=== PATIENT | male | born 1950 | race Caucasian/White ===

== ENCOUNTER 2017-04-20 11:24 | Day surgery (SDC) | payer OTHER ==
[2017-04-19 12:03] VITALS: BMI 25.0
--- NOTE | 2017-04-20 16:07 | MRI ---
LUMBAR SPINE MRI WITHOUT IV CONTRAST: Date: 04/20/17 HISTORY: 67-year-old male with low back pain and left leg pain for years. TECHNIQUE: Multiplanar, multisequence MRI examination of the lumbar spine is performed. FINDINGS: Conus medullaris region is unremarkable, terminating at L1. There are multiple bilateral T2 hyperint ense/T2 hypointense nodular foci involving the kidneys, statistically small bilateral cysts. There are some disc desiccation changes with ligament and facet hypertrophic changes involving L1-L2 and L2-L3, but no evidence for focal herniation, or canal or foraminal stenosis. At L3-L4, there is diffuse disc bulging with ligament and facet hypertrophic changes with mild to mo derate bilateral lateral recess stenosis and central canal stenosis, and mild bilateral foraminal st enosis. At L4-L5, there is diffuse disc bulging with ligament and facet hypertrophic changes, with moderate to severe central canal and bilateral lateral recess stenosis, worse on the left side. There is also asymmetric protrusion in the left posterolateral region with severe left foraminal stenosis and mod erate right foraminal stenosis. At L5-S1, no significant central canal, lateral recess, or foraminal stenosis. No significant abnorm al marrow signal. IMPRESSION: 1. Some multilevel, variable severity, canal, lateral recess, and foraminal stenosis, most marked a t L4-L5 and L3-L4 levels. 2. Bilateral renal nodular densities, statistically small cysts. POS: BALDEMAR
--- NOTE | 2017-04-20 16:16 | EKG ---
Test Reason : PREOP/MRI Blood Pressure : / mmHG Vent. Rate : 065 BPM Atrial Rate : 065 BPM P-R Int : 166 ms QRS Dur : 092 ms QT Int : 390 ms P-R-T Axes : 036 030 003 degrees QTc Int : 405 ms Normal sinus rhythm Nonspecific ST abnormality Abnormal ECG When compared with ECG of 14-FEB-2015 03:55, Nonspecific T wave abnormality no longer evident in Lateral leads Confirmed by DR. Leatha NAPOLES ([id number]) on 04/20/2017 4:16:08 PM Referred By: PHILIP Confirmed By:DR. Leatha NAPOLES
== END 2017-04-20 15:30 | disposition home or self-care (01) ==
LOC: SDC/OP 11:24 → SDC 11:24 → EDSTATUS 13:00 → SDC 15:30
PROVIDERS: ATTEND Internal Medicine
DX: M54.16 Radiculopathy, lumbar region (principal); M99.83 Other biomechanical lesions of lumbar region; N28.89 Other specified disorders of kidney and ureter; N28.1 Cyst of kidney, acquired
CPT/HCPCS: 72148; 93005; 93010